=== PATIENT | male | born 1975 | race Two or more races ===

== ENCOUNTER 2017-02-28 15:10 | Emergency (ER) | payer BC ==
[~2017-02-28] VITALS: Ht 170.2 cm; Wt 91.0 kg
[2017-02-28 16:51] LABS: RAPID INFLUENZA A Negative (Negative); RAPID INFLUENZA B Negative (Negative)
[2017-02-28 17:41] VITALS: BP 123/70
== END 2017-02-28 17:43 | disposition home or self-care (01) ==
LOC: ED 17:26
DX: J20.9 Acute bronchitis, unspecified (principal)
CPT/HCPCS: 71020; 87400